=== PATIENT | female | born 1980 | race Caucasian/White ===

== ENCOUNTER 2017-01-09 12:53 | Inpatient (IN) | payer OTHER ==
[~2017-01-09] VITALS: Ht 167.6 cm; Wt 90.0 kg
[2017-01-12] MEDS: D5%-LACTATED RINGERS 1,000 ML IV SCH ×2 (05:09→13:09)
[2017-01-12] MEDS ORDERED: OXYTOCIN 30U/ 0.9% NaCL 500ML 500 ML IV PRN (05:09)
[2017-01-12] MEDS ORDERED: OXYTOCIN 30U/ 0.9% NaCL 500ML 500 ML IV ONE (05:09)
[2017-01-12] MEDS ORDERED: NEWBORN KIT ONE (05:27)
[2017-01-12] MEDS ORDERED: OXYTOCIN 30U/ 0.9% NaCL 500ML 500 ML ONE ×2 (05:27→20:11)
[2017-01-12] MEDS ORDERED: FENTANYL PF 100 MCG/2ML IVPush PRN (05:30)
[2017-01-12] MEDS ORDERED: CALCIUM CARBONATE 500 MG TAB.CHEW PO PRN ×2 (05:30→19:30)
[2017-01-12] MEDS: LACTATED RINGERS 1,000 ML IV SCH ×5 (05:30→20:43)
[2017-01-12] MEDS ORDERED: FENTANYL PF 100 MCG/2ML IV PRN (05:30)
[2017-01-12 05:46] LABS: BLOOD UREA NITROGEN 9 mg/dL (7-18)
[2017-01-12 05:49] LABS: ASPARTATE AMINO TRANSFERASE 11 U/L (15-37)
[2017-01-12 06:00] VITALS: BP 136/91
[2017-01-12] MEDS ORDERED: ACETAMINOPHEN 325 MG TABLET PO PRN (07:30)
[2017-01-12] MEDS ORDERED: ACETAMINOPHEN 325 MG TABLET ONE (07:30)
[2017-01-12] MEDS ORDERED: FENTANYL/BUPIV./NS/PF 250 ML EPIDCONT ONE (08:35)
[2017-01-12] MEDS ORDERED: FENTANYL PF 100 MCG/2ML ONE (08:35)
[2017-01-12] MEDS ORDERED: BUPIVACAINE 0.25% ONE (08:36)
[2017-01-12] MEDS ORDERED: ONDANSETRON 2MG/ML, 2ML ONE ×2 (09:50→16:15)
[2017-01-12] MEDS: ONDANSETRON 2MG/ML, 2ML IVPush PRN ×2 (09:52→16:17)
[2017-01-12] MEDS ORDERED: FENTANYL/BUPIV./NS/PF 250 ML EPIDCONT SCH (10:19)
[2017-01-12] MEDS ORDERED: LACTATED RINGERS 1,000 ML IVBOLUS PRN (10:30)
[2017-01-12] MEDS ORDERED: RHOGAM FROM BLOOD BANK 1 NOTE EA IM/IV ONE (19:30)
[2017-01-12] MEDS ORDERED: OXYcodone IR 5MG TABLET PO PRN (19:30)
[2017-01-12] MEDS ORDERED: DOCUSATE 100 MG CAPSULE PO PRN (19:30)
[2017-01-12] MEDS ORDERED: ONDANSETRON 2MG/ML, 2ML IV PRN (19:30)
[2017-01-12] MEDS ORDERED: OXYcodone/APAP 5/325MG TABLET PO PRN (19:30)
[2017-01-12] MEDS ORDERED: DIPH,PERTUSS(ACELL),TET VAC/PF NC IM-VACC PRN (19:30)
[2017-01-12] MEDS ORDERED: MAGNESIUM HYDROXIDE 8%, 30ML UDC PO PRN (19:30)
[2017-01-12] MEDS ORDERED: MISOPROSTOL 200 MCG TABLET PR PRN (19:30)
[2017-01-12] MEDS ORDERED: IBUPROFEN 600 MG TABLET ONE (20:11)
[2017-01-12] MEDS: IBUPROFEN 600 MG TABLET PO PRN (20:25)
[2017-01-12] MEDS: OXYTOCIN 30U/ 0.9% NaCL 500ML 500 ML IV SCH (20:25)
[2017-01-12 21:15] VITALS: BP 139/92
[2017-01-13 01:00] VITALS: BP 130/83
[2017-01-13 04:50] VITALS: BP 116/83
[2017-01-13] MEDS: OXYTOCIN 30U/ 0.9% NaCL 500ML 500 ML IV SCH ×2 (05:04→15:04)
[2017-01-13 07:43] VITALS: BP 127/92
[2017-01-13] MEDS ORDERED: PRENATAL VIT/IRON/FA 1 EACH TABLET PO SCH (09:00)
[2017-01-13] MEDS: IBUPROFEN 600 MG TABLET PO PRN (10:21)
[2017-01-13 12:48] VITALS: BP 133/95
[2017-01-13 16:23] VITALS: BP 132/91
[2017-01-13] MEDS ORDERED: IBUP-1222 PO (16:28)
[2017-01-13] MEDS ORDERED: OXYC-302 PO (16:29)
== END 2017-01-13 18:20 | disposition home or self-care (01) | DRG 775 ==
LOC: LDIP 01-12 04:50 → 2NW 01-12 21:08
PROVIDERS: ADMIT Obstetrics & Gynecology Gynecology; ATTEND Obstetrics & Gynecology Gynecology
PROC: 10D07Z6 Extraction of Products of Conception, Vacuum, Via Natural or Artificial Opening (ICD-10-PCS; principal; 2017-01-12)
PROC: 0KQM0ZZ Repair Perineum Muscle, Open Approach (ICD-10-PCS; 2017-01-12)
PROC: 00HU33Z Insertion of Infusion Device into Spinal Canal, Percutaneous Approach (ICD-10-PCS; 2017-01-12)
PROC: 3E0R3CZ (ICD-10-PCS; 2017-01-12)
PROC: 3E033VJ Introduction of Other Hormone into Peripheral Vein, Percutaneous Approach (ICD-10-PCS; 2017-01-12)
PROC: 3E0334Z Introduction of Serum, Toxoid and Vaccine into Peripheral Vein, Percutaneous Approach (ICD-10-PCS; 2017-01-13)
DX: O14.94 Unspecified pre-eclampsia, complicating childbirth (principal); O99.354 Diseases of the nervous system complicating childbirth; Z37.0 Single live birth; Z3A.39 39 weeks gestation of pregnancy; O75.81 Maternal exhaustion complicating labor and delivery; O66.0 Obstructed labor due to shoulder dystocia; G43.909 Migraine, unspecified, not intractable, without status migrainosus; O69.81X0 Labor and delivery complicated by cord around neck, without compression, not applicable or unspecified; O26.893 Other specified pregnancy related conditions, third trimester; Z67.11 Type A blood, Rh negative; O70.1 Second degree perineal laceration during delivery
CPT/HCPCS: 36415; 80053; 82803; 85025; 85461; 86850; 86900; J2405; J2790; J2590; J3010; J7120